=== PATIENT | female | born 1965 | race Caucasian/White ===

== ENCOUNTER 2025-04-06 19:14 | Emergency (ER) | payer OTHER, SELFPAY ==
[2025-04-06 19:18] VITALS: BP 154/87
[2025-04-06 19:48] VITALS: BP 161/83
--- NOTE | 2025-04-06 20:14 | ED.SKININJ ---
HPI-Injury
General
Chief Complaint: Skin Surface Trauma
Source: patient
Time Seen by Provider: 04/06/25 19:42
History of Present Illness-Injury
Initial Injury comments:
60-year-old [place] female presents with laceration to right index finger she sustained today. She got it caught in a door latch. Last tetanus unknown. She denies numbness or tingling or loss of function. No other complaints.
Phy Exam
Physical Exam
Physical Exam:
General: Well-appearing acute distress
Skin: 2 cm flap type laceration volar aspect proximal portion right index finger without tendon or vascular involvement
Musculoskeletal exam: Good range of motion index finger
Neurologic: Good sensation right index finger
Course
Orders/Labs/Results
Orders:
Orders
04/06/25 20:13
Tetanus/Diphth/Acelpertussis [Adacel] 0.5 ml IM .ONCE ONE
Vital Signs
Initial and Last Documented VS:
Initial Vital Signs
Temp Pulse Resp BP Pulse Ox
98.2 F 89 16 154/87 100
04/06/25 19:18 04/06/25 19:18 04/06/25 19:18 04/06/25 19:18 04/06/25 19:18
Last Documented Vital Signs
Temp Pulse Resp BP Pulse Ox
98.2 F 89 16 161/83 98
04/06/25 19:18 04/06/25 19:18 04/06/25 19:18 04/06/25 19:48 04/06/25 20:00
MDM/Problems Addressed
Differential Diagnosis Includes:
Laceration right index finger without tendon or vascular involvement. The area was anesthetized locally using 1% plain lidocaine. The wound was then copiously irrigated with saline and closed with 5-0 Prolene sutures. 7 sutures were required to
provide wound edge approximation. Tetanus vaccine updated. Gauze wrap was applied. Stable for discharge
*Pulse Oximetry
SaO2: 98
Oxygen Mode of Delivery: Room air
Patient hypoxic: no
*Critical Care Note
Total Time (30-74mins, 75-104mins- exclusive of procedures): Not Applicable
ED Attending Note
-
Portions of this chart may have been created with voice recognition software.� Occasional wrong word or��sound alike� substitutions may have occurred due to the inherent limitations of voice recognition software.
Discharge Plan
Departure
Patient Disposition: Home (Routine Discharge)
Date of Disposition: 04/06/25
Time of Disposition: 20:16
Patient with high blood pressure during this ER visit?: No
Discharge Problem:
Laceration
Instructions: Laceration Repair With Stitches (DC)
Prescriptions:
No Action
No Current Medications
0
Activity Restrictions/Additional Instructions:
Keep clean. Have sutures removed in 12 to 14 days. Apply antibacterial ointment to the wound daily
Interventions
Interventions:
*Risk Screen - Suicide Last Done: 04/06/25 19:18
*General Assessment Last Done: 04/06/25 19:39
*Neglect/Abuse Screening Last Done: 04/06/25 19:18
*ED- Fall Risk Assessment Last Done: 04/06/25 19:39
*ED COVID-19 Vaccine History Last Done: 04/06/25 19:39
ED-Skin Assessment Last Done: 04/06/25 19:39
Discharge Date and Time
Print Language: [place]
[2025-04-06] MEDS: ADACEL 0.5 ML IM (20:22)
== END 2025-04-06 20:28 | disposition home or self-care (01) ==
LOC: EMR 19:14
PROVIDERS: EMERGENCY PHYSICIAN Emergency Medicine
DX: S61.210A Laceration without foreign body of right index finger without damage to nail, initial encounter (principal); W23.0XXA Caught, crushed, jammed, or pinched between moving objects, initial encounter; Z23 Encounter for immunization
CPT/HCPCS: 99282; 12001; 90471; 90715